=== PATIENT | female | born 1990 | race Caucasian/White ===

== ENCOUNTER 2025-03-25 21:56 | Emergency (ER) | payer MEDICAID, OTHER ==
[~2025-03-25] VITALS: Ht 160 cm; Wt 86.0 kg
[2025-03-25 21:56] VITALS: PULSE 0; RESP 0; TEMP 98; O2SAT 0
[2025-03-25] MEDS ORDERED: EPINEPHrine HCL 1 MG/10 ML SYRG IV ONE (21:57)
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
== END 2025-03-26 03:31 ==
LOC: ER 21:56 → EDBD 21:56 → ER 03-26 03:31
DX: I46.9 Cardiac arrest, cause unspecified (principal); Z79.899 Other long term (current) drug therapy; W18.2XXA Fall in (into) shower or empty bathtub, initial encounter; Y93.E1 Activity, personal bathing and showering; Y92.89 Other specified places as the place of occurrence of the external cause; Y99.8 Other external cause status
CPT/HCPCS: 31500; 82947; 92950; 99291; J0169